=== PATIENT | male | born 1975 | race Caucasian/White ===

== ENCOUNTER 2018-04-02 05:45 | Day surgery (SDC) | payer OTHER ==
[2018-04-02] MEDS ORDERED: PERCOCET 5-3251 EACH PO (08:09)
[2018-04-02] MEDS ORDERED: RECTICARE30 GM TOP (08:10)
== END 2018-04-02 15:13 | disposition home or self-care (01) ==
LOC: CIR.AMB 05:45
DX: K64.8 Other hemorrhoids (principal); K64.5 Perianal venous thrombosis